=== PATIENT | female | born 1960 | race Caucasian/White ===

== ENCOUNTER 2017-04-12 14:22 | Outpatient (CLI) | payer BC ==
--- NOTE | 2017-04-12 15:46 | XRAY Report ---
TWO VIEW RIGHT LOWER LE04/12/2017 CLINICAL INDICATION: Pain. FINDINGS: Frontal and lateral views of the right lower leg demonstrate previous ORIF of the distal f ibula, with side plate and screw fixation in place. No acute fracture or hardware complication is see n. IMPRESSION: PREVIOUS FIBULAR ORIF. NO EVIDENCE OF ACUTE FRACTURE. JOB #: [id number] EXT JOB #:[id number]
--- NOTE | 2017-04-12 15:48 | XRAY Report ---
THREE VIEW RIGHT ANKLE: 04/12/2017 CLINICAL INDICATION: Pain. FINDINGS: AP, lateral, and oblique views of the right ankle demonstrate previous lateral side plate and screw fixation of the distal fibula, without evidence of acute fracture. No hardware complication is seen. IMPRESSION: PREVIOUS ORIF OF THE RIGHT FIBULA. NO EVIDENCE OF ACUTE FRACTURE OR HARDWARE COMPLICATIO N. JOB #: [id number] EXT JOB #:[id number]
--- NOTE | 2017-04-12 15:49 | XRAY Report ---
TWO-VIEW RIGHT FOOT: 04/12/2017 CLINICAL INDICATION: Pain. FINDINGS: Frontal and lateral views of the right foot demonstrate mild osteoarthritis of the first m etatarsophalangeal joint. There is no evidence of acute fracture or dislocation. No radiopaque fore ign body is seen in the soft tissues. IMPRESSION: MILD OSTEOARTHRITIS OF THE FIRST METATARSOPHALANGEAL JOINT. JOB #: [id number] EXT JOB #:[id number]
== END 2017-04-12 14:23 | disposition home or self-care (01) ==
LOC: DI.N 14:22
PROVIDERS: ATTEND Family Medicine
DX: M79.661 Pain in right lower leg (principal); M25.571 Pain in right ankle and joints of right foot; R22.41 Localized swelling, mass and lump, right lower limb; M19.071 Primary osteoarthritis, right ankle and foot; Z87.81 Personal history of (healed) traumatic fracture

== ENCOUNTER 2017-04-19 10:53 | Outpatient (CLI) | payer BC ==
[2017-04-19 13:14] LABS: BASOPHILS # (AUTO) 0.1 10^3/uL (0.0-0.1); BASOPHILS % (AUTO) 0.5 %; EOSINOPHILS # (AUTO) 0.3 10^3/uL (0.0-0.7); EOSINOPHILS % (AUTO) 2.5 %; HCT - HEMATOCRIT 39.8 % (37.0-47.0); HGB - HEMOGLOBIN 13.1 g/dL (12.0-16.0); LYMPHOCYTES # (AUTO) 3.9 10^3/uL (1.5-3.5); LYMPHOCYTES % (AUTO) 38.5 %; MEAN CORPUSCULAR HEMOGLOBIN 25.9 pg (27.0-31.0); MEAN CORPUSCULAR VOLUME 78.6 fL (81.0-99.0); MEAN PLATELET VOLUME 10.5 fL (7.9-10.8); MONOCYTES # (AUTO) 0.6 10^3/uL (0.0-1.0); MONOCYTES % (AUTO) 6.1 %; NEUTROPHILS # (AUTO) 5.4 10^3/uL (1.5-6.6); NEUTROPHILS % (AUTO) 52.4 %; NUCLEATED RED BLOOD CELLS AUTO 0.1 /100WBC; RED BLOOD COUNT 5.06 10^6/uL (4.20-5.40); RED CELL DISTRIBUTION WIDTH 14.5 % (12.0-15.0); UNCORRECTED WHITE BLOOD COUNT 10.2 x10^3/uL; WHITE BLOOD COUNT 10.2 x10^3/uL (4.8-10.8)
[2017-04-19 13:29] LABS: ALBUMIN/GLOBULIN RATIO 1.5 (1.0-2.2); BILIRUBIN,TOTAL 0.4 mg/dL (0.2-1.0); BUN - BLOOD UREA NITROGEN 16 mg/dL (6-20); CALCIUM 9.8 mg/dL (8.5-10.3); CARBON DIOXIDE - CO2 25 mmol/L (21-32); CHLORIDE 105 mmol/L (101-111); CHOL/HDL RATIO 4.5 (<4.4); CHOLESTEROL 243 mg/dL; CREATININE 1.2 mg/dL (0.4-1.0); GFR - MDRD 47 (>89); GLUCOSE 93 mg/dL (70-100); HDL CHOLESTEROL 54 mg/dL; LDL/HDL RATIO 2.9 (<4.4); POTASSIUM 3.8 mmol/L (3.5-5.0); SODIUM 140 mmol/L (135-145); TOTAL PROTEIN 7.7 g/dL (6.7-8.2); TRIGLYCERIDES 170 mg/dL; VLDL CHOLESTEROL 34 mg/dL
== END 2017-04-19 10:54 | disposition home or self-care (01) ==
LOC: LAB.N 10:53
PROVIDERS: ATTEND Family Medicine
DX: F17.210 Nicotine dependence, cigarettes, uncomplicated (principal); M79.661 Pain in right lower leg; M25.571 Pain in right ankle and joints of right foot; R73.01 Impaired fasting glucose
CPT/HCPCS: 36415; 80053; 80061; 85025; 85651

== ENCOUNTER 2018-01-24 08:00 | Outpatient (CLI) | payer BC ==
[2018-01-24 13:10] LABS: ALBUMIN 3.8 g/dL (3.2-5.5); ALKALINE PHOSPHATASE 66 IU/L (42-121); ALT ALANINE AMINOTRANSFERASE 18 IU/L (10-60); AST ASPARTATE AMINOTRANSFERASE 20 IU/L (10-42); BILIRUBIN,TOTAL 0.4 mg/dL (0.2-1.0); BUN - BLOOD UREA NITROGEN 15 mg/dL (6-20); CALCIUM 9.5 mg/dL (8.5-10.3); CARBON DIOXIDE - CO2 28 mmol/L (21-32); CHLORIDE 105 mmol/L (101-111); CHOL/HDL RATIO 3.9 (<4.4); CHOLESTEROL 189 mg/dL; CREATININE 1.1 mg/dL (0.4-1.0); GFR - MDRD 51 (>89); GLUCOSE 111 mg/dL (70-100); HDL CHOLESTEROL 49 mg/dL; LDL CHOLESTEROL,CALCULATED 109 mg/dL; LDL/HDL RATIO 2.2 (<4.4); SODIUM 140 mmol/L (135-145); TOTAL PROTEIN 7.8 g/dL (6.7-8.2); VLDL CHOLESTEROL 31 mg/dL
== END 2018-01-24 08:01 ==
LOC: LAB.N 08:00
PROVIDERS: ATTEND Family Medicine
DX: E78.5 Hyperlipidemia, unspecified (principal); R73.01 Impaired fasting glucose
CPT/HCPCS: 36415; 80053; 80061; 83721

== ENCOUNTER 2018-02-07 09:19 | Outpatient (CLI) | payer BC ==
[2018-02-07 13:30] LABS: HB2 TOTAL 13.5 g/dL; HEMOGLOBIN A1C 0.53 g/dL; HEMOGLOBIN A1C % 5.7 % (4.6-6.2)
== END 2018-02-07 09:20 | disposition home or self-care (01) ==
LOC: LAB.N 09:19
PROVIDERS: ATTEND Family Medicine
DX: R73.01 Impaired fasting glucose (principal)
CPT/HCPCS: 36415; 83036

== ENCOUNTER 2018-03-06 13:27 | Outpatient (CLI) | payer BC | END 2018-03-06 13:28 | disposition short-term general hospital (02) | LOC: EMS 13:27 | PROVIDERS: ATTEND Surgery | DX: R07.9 Chest pain, unspecified (principal); R06.02 Shortness of breath | CPT/HCPCS: A0425; A0427 ==

== ENCOUNTER → 2018-03-11 | Outpatient (CLI) | payer BC | LOC: RT.N 12:00 | PROVIDERS: ATTEND Family Medicine | DX: I20.9 Angina pectoris, unspecified (principal) | CPT/HCPCS: 93005 ==

== ENCOUNTER 2018-05-16 11:56 | Outpatient (CLI) | payer BC ==
[2018-05-16 19:29] LABS: CALCIUM 9.6 mg/dL (8.5-10.3)
[2018-05-16 19:59] LABS: HB2 TOTAL 13.1 g/dL; HEMOGLOBIN A1C 0.52 g/dL; HEMOGLOBIN A1C % 5.8 % (4.6-6.2)
== END 2018-05-16 11:57 | disposition home or self-care (01) ==
LOC: LAB.WCP 11:56
PROVIDERS: ATTEND Family Medicine
DX: R73.01 Impaired fasting glucose (principal)
CPT/HCPCS: 36415; 80048; 83036

== ENCOUNTER 2019-07-10 08:44 | Outpatient (CLI) | payer BC ==
[2019-07-10 12:35] LABS: CHOLESTEROL 104 mg/dL; HDL CHOLESTEROL 51 mg/dL; LDL CHOLESTEROL,CALCULATED 35 mg/dL; LDL/HDL RATIO 0.7 (<4.4); VLDL CHOLESTEROL 18 mg/dL
== END 2019-07-10 23:59 | disposition home or self-care (01) ==
LOC: LAB.N 08:44
PROVIDERS: ATTEND Hospitalist
DX: I25.10 Atherosclerotic heart disease of native coronary artery without angina pectoris (principal); E78.2 Mixed hyperlipidemia
CPT/HCPCS: 36415; 80061; 83721

== ENCOUNTER 2020-10-20 07:00 | Outpatient (CLI) | payer BC ==
[2020-10-20 14:25] LABS: ALBUMIN 4.2 g/dL (3.2-5.5); ALBUMIN/GLOBULIN RATIO 1.1 (1.0-2.2); ALKALINE PHOSPHATASE 61 IU/L (42-121); ALT ALANINE AMINOTRANSFERASE 27 IU/L (10-60); AST ASPARTATE AMINOTRANSFERASE 24 IU/L (10-42); BILIRUBIN,TOTAL 0.3 mg/dL (0.2-1.0); BUN - BLOOD UREA NITROGEN 17 mg/dL (6-20); CALCIUM 9.9 mg/dL (8.5-10.3); CARBON DIOXIDE - CO2 27 mmol/L (21-32); CHLORIDE 106 mmol/L (101-111); CHOL/HDL RATIO 2.1 (<4.4); CHOLESTEROL 112 mg/dL; GFR - MDRD 57 (>89); GLUCOSE 120 mg/dL (70-100); HDL CHOLESTEROL 54 mg/dL; LDL CHOLESTEROL,CALCULATED 37 mg/dL; LDL/HDL RATIO 0.7 (<4.4); POTASSIUM 3.8 mmol/L (3.5-5.0); SODIUM 142 mmol/L (135-145); TOTAL PROTEIN 8.1 g/dL (6.7-8.2); TRIGLYCERIDES 105 mg/dL; VLDL CHOLESTEROL 21 mg/dL
== END 2020-10-20 23:59 | disposition home or self-care (01) ==
LOC: LAB.WCP 07:00
PROVIDERS: ATTEND Registered Nurse
DX: I25.10 Atherosclerotic heart disease of native coronary artery without angina pectoris (principal); E78.2 Mixed hyperlipidemia
CPT/HCPCS: 36415; 80053; 80061; 83721

== ENCOUNTER 2022-11-09 09:26 | Outpatient (CLI) | payer BC ==
[2022-11-09 09:53] LABS: BASOPHILS # (AUTO) 0.1 10^3/uL (0.0-0.1); BASOPHILS % (AUTO) 0.6 %; EOSINOPHILS # (AUTO) 0.2 10^3/uL (0.0-0.7); EOSINOPHILS % (AUTO) 2.2 %; HCT - HEMATOCRIT 41.1 % (37.0-47.0); HGB - HEMOGLOBIN 12.9 g/dL (12.0-16.0); LYMPHOCYTES # (AUTO) 3.3 10^3/uL (1.5-3.5); LYMPHOCYTES % (AUTO) 32.7 %; MEAN CORPUSCULAR HEMOGLOBIN 25.8 pg (27.0-31.0); MEAN CORPUSCULAR HGB CONC 31.4 g/dL (32.0-36.0); MEAN CORPUSCULAR VOLUME 82.2 fL (81.0-99.0); MEAN PLATELET VOLUME 12.6 fL (7.9-10.8); MONOCYTES # (AUTO) 0.5 10^3/uL (0.0-1.0); MONOCYTES % (AUTO) 5.3 %; NEUTROPHILS % (AUTO) 58.9 %; PLT - PLATELET COUNT 184 10^3/uL (130-450); WHITE BLOOD COUNT 10.1 x10^3/uL (4.8-10.8)
[2022-11-09 10:14] LABS: % IRON SATURATION 14 % (20-50); ALBUMIN 4.4 g/dL (3.2-5.5); ALKALINE PHOSPHATASE 65 IU/L (42-121); ALT ALANINE AMINOTRANSFERASE 22 IU/L (10-60); AST ASPARTATE AMINOTRANSFERASE 24 IU/L (10-42); BILIRUBIN,TOTAL 0.3 mg/dL (0.2-1.0); BUN - BLOOD UREA NITROGEN 20 mg/dL (6-20); CARBON DIOXIDE - CO2 26 mmol/L (21-32); CHLORIDE 108 mmol/L (101-111); CHOL/HDL RATIO 2.5 (<4.4); CHOLESTEROL 142 mg/dL; GFR - MDRD 57 (>89); GLUCOSE 115 mg/dL (70-100); HDL CHOLESTEROL 57 mg/dL; IRON 58 ug/dL (28-170); LDL CHOLESTEROL,CALCULATED 62 mg/dL; LDL/HDL RATIO 1.1 (<4.4); SODIUM 142 mmol/L (135-145); TOTAL IRON BINDING CAPACITY 424 ug/dL (250-450); TOTAL PROTEIN 8.8 g/dL (6.7-8.2); TRANSFERRIN 303 mg/dL (192-382); TRIGLYCERIDES 116 mg/dL; VLDL CHOLESTEROL 23 mg/dL
[2022-11-09 10:21] LABS: CRP - C-REACTIVE PROTEIN < 1.0 mg/dL (0-1.0)
[2022-11-09 10:24] LABS: THYROID STIMULATING HORMONE 1.08 uIU/mL (0.34-5.60)
[2022-11-09 10:31] LABS: FERRITIN 12.4 ng/mL (11.0-306.8)
--- NOTE | 2022-11-09 10:31 | XRAY Report ---
PROCEDURE: Chest 2 View X-Ray INDICATIONS: ACUTE COUGH TECHNIQUE: 2 views of the chest were acquired. COMPARISON: None. FINDINGS: Surgical changes and devices: None. Lungs and pleura: No pleural effusions or pneumothorax. Lungs are clear. Prominent nipple shadows . Mediastinum: Mediastinal contours appear normal. Heart size is normal. Bones and chest wall: No suspicious bony lesions. Overlying soft tissues appear unremarkable. IMPRESSION: No acute cardiopulmonary process. Reviewed by: Ab Martini on 11/09/2022 10:30 AM PDT Approved by: Ab Martini on 11/09/2022 10:30 AM PDT Station ID: [id number]
[2022-11-09 11:37] LABS: ESTIMATED AVERAGE GLUCOSE 131 mg/dL (70-100); HEMOGLOBIN A1c% 6.2 % (4.27-6.07)
[2022-11-09 12:36] LABS: RHEUMATOID FACTOR NEGATIVE (Negative)
--- NOTE | 2022-11-09 16:54 | XRAY Report ---
PROCEDURE: Lumbar Spine Complete INDICATIONS: BACK PAIN,LUMBAR TECHNIQUE: 5 views of the lumbar spine were acquired. COMPARISON: None. FINDINGS: Bones: 5 [id number]-[id number] vertebrae are present. There is S-shaped scoliosis of lower thoracic and lumbar spine. No acute compression fracture or significant spondylolisthesis. Degenerative disc disea se throughout lumbar spine is seen. Oblique views shows no gross pars defects. No suspicious bony les ions. Soft tissues: Overlying bowel gas pattern is normal. No suspicious soft tissue calcifications. IMPRESSION: 1. Scoliosis of lumbar spine. No acute compression fracture or significant spondylolisthesis. 2. Degenerative disc disease throughout. No gross pars defects. Reviewed by: Silvino Eid MD on 11/09/2022 4:53 PM PDT Approved by: Silvino Eid MD on 11/09/2022 4:53 PM PDT Station ID: [id number]
--- NOTE | 2022-11-09 16:55 | XRAY Report ---
PROCEDURE: Cervical Spine Comp w/Flex/Ext INDICATIONS: PARETHESIA,HANDS TECHNIQUE: 7 views of the cervical spine were acquired. COMPARISON: None. FINDINGS: Bones: No fractures or dislocations to the T1 level. No suspicious bony lesions. Mild degenerative endplate changes are noted at C5-6 and C6-7 levels. There is normal range of motion between flexion and extension, with preserved normal bony alignment. Oblique views shows no significant bony foramina l stenosis. Soft tissues: Prevertebral soft tissues are normal in thickness. IMPRESSION: Mild degenerative disc disease in lower cervical spine. No fracture or dislocation. No s ignificant bony foraminal stenosis. Normal range of motion on lateral flexion and extension views wit h preserved cervical spine alignment. Reviewed by: Silvino Eid MD on 11/09/2022 4:54 PM PDT Approved by: Silvino Eid MD on 11/09/2022 4:54 PM PDT Station ID: [id number]
[2022-11-10 21:07] LABS: ANTI-DNA (DS) AB QN 5 IU/mL (0-9)
[2022-11-12 20:07] LABS: CYCLIC CITRULLINATED PEP IGG/A <1 units (0-19)
[2022-11-13 18:07] LABS: ANTINUCLEAR ANTIBODIES IFA Negative (.)
== END 2022-11-09 09:27 | disposition home or self-care (01) ==
LOC: DI 09:26
PROVIDERS: ATTEND Physician Assistant
DX: R05.1 Acute cough (principal); M50.322 Other cervical disc degeneration at C5-C6 level; M51.36 Other intervertebral disc degeneration, lumbar region; R20.2 Paresthesia of skin; G62.9 Polyneuropathy, unspecified; I25.10 Atherosclerotic heart disease of native coronary artery without angina pectoris; R53.83 Other fatigue; G25.81 Restless legs syndrome; M25.50 Pain in unspecified joint
CPT/HCPCS: 36415; 80053; 80061; 81374; 82607; 82728; 82746; 83036; 83540; 83721; 84443; 84466; 85025; 85651; 86038; 86140; 86200; 86225; 86430

== ENCOUNTER 2023-09-17 12:37 | Outpatient (CLI) | payer BC ==
[2023-09-17 13:19] LABS: CK- CREATINE KINASE 73 IU/L (30-223); CREATININE 1.2 mg/dL (0.6-1.3); CRP - C-REACTIVE PROTEIN < 0.5 mg/dL (<0.5); GFR - MDRD 46 (>89)
[2023-09-17 13:47] LABS: RHEUMATOID FACTOR POSITIVE (Negative)
--- NOTE | 2023-09-17 13:52 | XRAY Report ---
PROCEDURE: Foot 1-2V BL INDICATIONS: PAIN IN MULITPLE JOINT SITES TECHNIQUE: 2 views of the bilateral feet were acquired. COMPARISON: None. FINDINGS: Bones: No fractures or dislocations. No suspicious bony lesions. Mild bilateral first MTP degener ative change. Right distal fibular orthopedic surgical hardware incidentally noted. Soft tissues: No suspicious soft tissue calcifications or masses. IMPRESSION: Mild bilateral first MTP degenerative change. No acute bony abnormality. Reviewed by: Jerome Miller MD on 09/17/2023 1:51 PM PST Approved by: Jerome Miller MD on 09/17/2023 1:51 PM PST Station ID: [id number]
--- NOTE | 2023-09-17 13:56 | XRAY Report ---
PROCEDURE: Pelvis 1-2V INDICATIONS: PAIN IN MULITPLE JOINT SITES TECHNIQUE: 1 view(s) of the pelvis acquired. COMPARISON: None. FINDINGS: Bones: No fractures or dislocations. No suspicious bony lesions. Mild bilateral hip degenerative change. Soft tissues: Visualized bowel gas pattern is normal. No suspicious soft tissue calcifications. IMPRESSION: Mild bilateral hip degenerative change. No acute bony abnormality. Reviewed by: Jerome Miller MD on 09/17/2023 1:55 PM PST Approved by: Jerome Miller MD on 09/17/2023 1:55 PM PST Station ID: [id number]
--- NOTE | 2023-09-17 14:21 | XRAY Report ---
PROCEDURE: Hand 1-2V BL INDICATIONS: PAIN IN MULITPLE JOINT SITES TECHNIQUE: 2 views of the hand(s) acquired. COMPARISON: None. FINDINGS: Bones: No fractures or dislocations. Mild bilateral hand and wrist joint osteoarthritis is seen wit h joint space narrowing and subchondral sclerosis. No gross bony erosive changes are seen. No suspici ous bony lesions. Soft tissues: No suspicious soft tissue calcifications or masses. 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 No bony erosive changes. No fracture or dislocati on. Reviewed by: Silvino Eid MD on 09/17/2023 2:19 PM PST Approved by: Silvino Eid MD on 09/17/2023 2:19 PM PST Station ID: [id number]
== END 2023-09-17 12:38 | disposition home or self-care (01) ==
LOC: DI 12:37
PROVIDERS: ATTEND Internal Medicine Rheumatology
DX: M19.042 Primary osteoarthritis, left hand (principal); M19.041 Primary osteoarthritis, right hand; M19.032 Primary osteoarthritis, left wrist; M19.031 Primary osteoarthritis, right wrist; M16.0 Bilateral primary osteoarthritis of hip; M19.072 Primary osteoarthritis, left ankle and foot; M19.071 Primary osteoarthritis, right ankle and foot; M79.10 Myalgia, unspecified site; M54.9 Dorsalgia, unspecified
CPT/HCPCS: 36415; 81374; 81599; 82550; 82565; 82784; 83521; 84155; 84165; 85651; 86140; 86200; 86334; 86430